=== PATIENT | male | born 1965 | race Caucasian/White ===

== ENCOUNTER 2018-02-28 13:06 | Emergency (ER) | payer MEDICARE, MEDICAID | END 2018-02-28 18:48 | disposition E | LOC: M ED 13:06 | DX: I46.8 Cardiac arrest due to other underlying condition (principal); V23.4XXA Motorcycle driver injured in collision with car, pick-up truck or van in traffic accident, initial encounter; Y92.410 Unspecified street and highway as the place of occurrence of the external cause | CPT/HCPCS: 92950 ==

== ENCOUNTER → 2018-03-01 | Outpatient (REF) ==
[2018-03-01 18:19] LABS: HIV 1&2 SCREEN CENTAUR NEGATIVE (NEGATIVE)
== END ==
LOC: M LAB 11:33